=== PATIENT | male | born 1985 | race Caucasian/White ===

== ENCOUNTER 2019-05-24 23:41 | Emergency (ER) | payer SELFPAY ==
[~2019-05-24] VITALS: Ht 160 cm; Wt 74.4 kg
[2019-05-24 23:45] VITALS: BP 145/96
--- NOTE | 2019-05-24 23:50 | NUR ---
PT AMBULATED TO BED WITH
--- NOTE | 2019-05-24 23:50 | NUR ---
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 DENIES N/V. PT AWAKE AND ALERT, SKIN NORMAL COLOR WARM AND DRY, RR EVEN AND UNLABORED. LUNG SOUNDS CLEAR BL. HR EVEN AND REGULAR, NSR ON EKG. DENIES MED HX, RX OR OTC. DENIES SMOKING, ALCOHOL/SUBSTANCE ABUSE. DAILY COFEE USE.
--- NOTE | 2019-05-25 01:15 | NUR ---
ASSUMED CARE OF PT AT THIS TIME. PT STATES HAVING C/P. PT APPEARS TO BE IN NO DISTRESS. PT VSS. NSR ON MONITOR. PT DENIES PAIN IN PAST. PT DENIES TAKING MEDS, DRUGS OR ENERGY DRINKS. PT DRINKS COFFEE IN THE MORNING. PT AMBULATORY TO RESTROOM WITH OUT ASSISTANCE. LAB BUSY AT THIS TIME. PT BLOOD DRAWN BY PRIMARY NURSE AND SENT TO LAB.
[2019-05-25 02:03] LABS: BASOPHILS % (AUTO) 0.4 % (0.0-2.0); EOSINOPHILS # (AUTO) 0.1 K/uL (0-0.4); EOSINOPHILS % (AUTO) 0.7 % (0.0-4.0); HEMATOCRIT 46.5 % (36-52); HEMOGLOBIN 15.5 g/dL (12.0-18.0); LYMPHOCYTES # (AUTO) 1.6 K/uL (2.0-11.5); LYMPHOCYTES % (AUTO) 13.9 % (20.5-51.1); MEAN CORPUSCULAR HEMOGLOBIN 31 pg (27-31); MEAN CORPUSCULAR HGB CONC 33 g/dL (33-37); MEAN CORPUSCULAR VOLUME 92.7 fL (80-94); MONOCYTES # (AUTO) 0.7 K/uL (0.8-1.0); MONOCYTES % (AUTO) 6.3 % (1.7-9.3); NEUTROPHILS # (AUTO) 9.1 K/uL (1.8-7.7); NEUTROPHILS % (AUTO) 78.7 % (42.2-75.2); PLATELET COUNT (AUTO) 212 K/uL (140-450); RED BLOOD CELL COUNT(AUTO) 5.01 MIL/uL (4.20-6.10); RED CELL DISTRIBUTION WIDTH 13.1 % (11.6-13.7); WHITE BLOOD COUNT (AUTO) 11.6 K/uL (4.8-10.8)
[2019-05-25 02:19] LABS: CREATINE KINASE MB 0.8 ng/mL (0-3.6)
[2019-05-25 02:39] LABS: BARBITURATE, URINE NEG. ng/ml (NEG <=200); BENZODIAZEPINE, URINE NEG. ng/mL (NEG <=200); CANNABINOID, URINE NEG. ng/mL (NEG <=50); COCAINE, URINE NEG. ng/mL (NEG <=300); OPIATE, URINE NEG. ng/mL (NEG <=2000); PHENCYCLIDINE SCREEN,URINE NEG. ng/mL (NEG <=25)
[2019-05-25 02:42] LABS: ALBUMIN 4.4 g/dL (3.4-5.0); ANION GAP 15.8 (8-16); CREATININE 0.9 mg/dL (0.7-1.3); POTASSIUM 3.8 mmol/L (3.5-5.1); TOTAL BILIRUBIN 0.4 mg/dL (0.0-1.0)
--- NOTE | 2019-05-25 03:13 | NUR ---
PT APPEARS TO BE IN NO DISTRESS AT THIS TIME. VSS. NO CHANGES FROM PREVIOUS. ALL RESULTS BACK WAITING FOR TO MERY.
[2019-05-25 03:27] VITALS: BP 112/69
== END 2019-05-25 03:26 | disposition home or self-care (01) ==
LOC: MED 23:41
DX: R10.9 Unspecified abdominal pain (principal)
CPT/HCPCS: 36415; 71045; 80053; 80305; 82550; 82553; 83690; 84484; 85025; 93005; 99284; Q0092